=== PATIENT | female | born 1945 | race African-American/Black ===

== ENCOUNTER 2016-09-26 21:28 | Emergency (ER) | payer OTHER ==
[2016-09-26 21:12] LABS: BASOPHILS 0.2 %; BASOPHILS ABSOLUTE 0.02 10/3/uL (0.0-0.16); EOSINOPHILS 0.2 %; EOSINOPHILS ABSOLUTE 0.02 10/3/uL (0.0-0.53); ER CBC TAT 0 Hrs 03 Mins; HEMATOCRIT 32.8 % (36.0-48.0); HEMOGLOBIN 10.9 g/dL (12.0-16.0); IMMATURE GRANULOCYTES 0.2 %; IMMATURE GRANULOCYTES ABSOLUTE 0.02 10/3/uL (0.0-0.11); MEAN CORPUS HGB CONC 33.2 g/dL (32.0-36.0); MEAN CORPUSCULAR HEMOGLOB 29.9 pg (26.0-34.0); MEAN PLATELET VOLUME 9.3 fL (9.2-13.0); MONOCYTES 6.9 %; NEUTROPHILS 69.5 %; NEUTROPHILS ABSOLUTE 6.05 10/3/uL (2.02-8.40); PLATELET COUNT 246 10/3/uL (150-400); RBC DISTRIBUTION WIDTH 17.6 % (12.0-16.0); RED CELL COUNT 3.64 10/6/uL (4.0-5.6); WHITE BLOOD CELLS 8.7 10/3/uL (4.5-10.5)
[2016-09-26 21:13] LABS: MANUAL DIFF NO %; MEAN CORPUSCULAR VOLUME 90.1 fL (80-100)
[2016-09-26 21:27] LABS: CALCIUM, SERUM 9.1 MG/DL (8.5-10.4); CHLORIDE, SERUM 107 MMOL/L (96-112); CO2 (CARBON DIOXIDE) 30 MMOL/L (24-34); CREATININE 1.27 MG/DL (0.55-1.02); GFR AFRICAN AMERICAN 48 ML/MIN (>=60); GFR NON AFRICAN AMERICAN 42 ML/MIN (>=60); GLUCOSE, SERUM 71 MG/DL (60-99); POTASSIUM, SERUM 3.8 MMOL/L (3.5-5.3); SGOT(AST) 109 U/L (5-40); SGPT(ALT) 57 U/L (5-65); SODIUM, SERUM 146 MMOL/L (135-148); TOTAL BILIRUBIN 0.7 MG/DL (0-1.2); TOTAL PROTEIN 7.7 G/DL (6.0-8.5)
[2016-09-26 21:28] LABS: A/G RATIO 0.8 (0.7-1.9); ALBUMIN 3.3 G/DL (3.5-5.0); ALKALINE PHOSPHATASE 124 U/L (45-117); BUN (BLOOD UREA NITROGEN) 32 MG/DL (6-23); GLOBULIN 4.4 G/DL (2.5-4.1)
[~2016-09-26 21:28] MED LIST: BUM1 PO; BUM2 PO; C25 PO; C5 PO; CORDARONE PO; COREG12 PO; COREG3 PO; COREG6 PO; DIGITEK0.125 MG PO; DOCUSOFT S100 MG PO; DSS PO; HYGROTON 25 MG25 MG PO; KDUR20 PO; KLOR-CON M1010 MEQ PO; KLOR-CON M2020 MEQ PO; L40 PO; L80 PO; LAN125 PO; LIPITOR10 PO; MAGOX4 PO; MOMUD PO; MUCINEX600 MG PO; P10 PO; SPIRO25 PO; SYMBICORT 160/41 INH INH; SYMBICORT 80/4.1 INH INH; VASOTEC10 PO; VENTOLIN HFA INH; VITAMIN D2 PO; Z-PAK PO; ZITH250 PO
[2016-12-25] MEDS ORDERED: COREG3 PO (17:53)
[2016-12-25] MEDS ORDERED: C25 PO (17:55)
[2016-12-25] MEDS ORDERED: LAN125 PO (17:58)
[2016-12-25] MEDS ORDERED: HYGROTON 25 MG25 MG PO (18:00)
[2016-12-25] MEDS ORDERED: L80 PO (18:01)
[2016-12-25] MEDS ORDERED: VENTOLIN HFA INH (18:02)
[2016-12-25] MEDS ORDERED: KLOR-CON M2020 MEQ PO (18:02)
[2016-12-25] MEDS ORDERED: PACERONE200 MG PO (18:02)
[2016-12-25] MEDS ORDERED: ADVIL PO (18:03)
[2016-12-25] MEDS ORDERED: GLYCERIN SUPPOSITORY PR (18:05)
[2016-12-26] MEDS ORDERED: PEP20 PO (18:28)
[2016-12-26] MEDS ORDERED: PRIN2.5 PO (18:31)
[2016-12-26] MEDS ORDERED: SPIRO25 PO (18:32)
[2016-12-26] MEDS ORDERED: LIPITOR20 PO (18:48)
== END 2016-09-27 00:18 | disposition home or self-care (01) ==
LOC: ER 21:28
PROVIDERS: Emergency Medicine
DX: J45.909 Unspecified asthma, uncomplicated (principal); R35.0 Frequency of micturition; F41.9 Anxiety disorder, unspecified; J44.9 Chronic obstructive pulmonary disease, unspecified; I50.9 Heart failure, unspecified; Z95.0 Presence of cardiac pacemaker; I12.9 Hypertensive chronic kidney disease with stage 1 through stage 4 chronic kidney disease, or unspecified chronic kidney disease; N18.9 Chronic kidney disease, unspecified; I48.91 Unspecified atrial fibrillation; Z90.49 Acquired absence of other specified parts of digestive tract; Z90.710 Acquired absence of both cervix and uterus; Z88.1 Allergy status to other antibiotic agents; Z79.01 Long term (current) use of anticoagulants; Z79.899 Other long term (current) drug therapy
CPT/HCPCS: 71010; 80053; 81001; 85025; 94640; 99285

== ENCOUNTER 2016-09-27 01:39 | Emergency (ER) | payer OTHER ==
[2016-09-27 01:24] LABS: PARTIAL THROMBO TIME 33.5 SEC (22.5-37.2)
[2016-09-27 01:31] LABS: INTERNATIONAL NORMAL RATI 2.7 UNITS (-); PROTIME (NOT ORD) 28.6 SEC (12.0-14.5)
[2016-09-27 02:54] LABS: ASCORBIC ACID (UR NOT ORDER) NEG (NEG); BILIRUBIN, URINE NEGATIVE (NEG); ER URINALYSIS TAT 0 Hrs 09 Mins; KETONE, URINE NEGATIVE (NEG); LEUKOCYTE ESTERASE(NOT OR SMALL (NEG); NITRITE (URINE) NEG (NEG); WBC (NOT ORDERED) (RFLEX) 4 (0-5)
[2016-12-25] MEDS ORDERED: COREG3 PO (17:53)
[2016-12-25] MEDS ORDERED: C25 PO (17:55)
[2016-12-25] MEDS ORDERED: LAN125 PO (17:58)
[2016-12-25] MEDS ORDERED: HYGROTON 25 MG25 MG PO (18:00)
[2016-12-25] MEDS ORDERED: L80 PO (18:01)
[2016-12-25] MEDS ORDERED: PACERONE200 MG PO (18:02)
[2016-12-25] MEDS ORDERED: KLOR-CON M2020 MEQ PO (18:02)
[2016-12-25] MEDS ORDERED: VENTOLIN HFA INH (18:02)
[2016-12-25] MEDS ORDERED: ADVIL PO (18:03)
[2016-12-25] MEDS ORDERED: GLYCERIN SUPPOSITORY PR (18:05)
[2016-12-26] MEDS ORDERED: PEP20 PO (18:28)
[2016-12-26] MEDS ORDERED: PRIN2.5 PO (18:31)
[2016-12-26] MEDS ORDERED: SPIRO25 PO (18:32)
[2016-12-26] MEDS ORDERED: LIPITOR20 PO (18:48)
== END 2016-09-27 03:28 | disposition home or self-care (01) ==
LOC: ER 01:39
PROVIDERS: Specialist
DX: R06.00 Dyspnea, unspecified (principal); I13.0 Hypertensive heart and chronic kidney disease with heart failure and stage 1 through stage 4 chronic kidney disease, or unspecified chronic kidney disease; N18.9 Chronic kidney disease, unspecified; I50.9 Heart failure, unspecified; R79.89 Other specified abnormal findings of blood chemistry; J45.909 Unspecified asthma, uncomplicated; J44.9 Chronic obstructive pulmonary disease, unspecified; I48.91 Unspecified atrial fibrillation; Z90.49 Acquired absence of other specified parts of digestive tract; Z90.710 Acquired absence of both cervix and uterus; Z95.810 Presence of automatic (implantable) cardiac defibrillator; Z88.1 Allergy status to other antibiotic agents; Z79.01 Long term (current) use of anticoagulants; Z79.899 Other long term (current) drug therapy
CPT/HCPCS: 81001; 83880; 84484; 85610; 85730; 87086; 93005; 94640; 99285